=== PATIENT | female | born 1980 | race African-American/Black ===

== ENCOUNTER 2017-11-25 22:22 | Inpatient (IN) | payer OTHER ==
[~2017-11-25] VITALS: Ht 154.9 cm; Wt 62.8 kg
--- NOTE | ~2017-11-25 | 2DMMODE ---
[facility] [address] [place] [address] 2 D/M-MODE ECHOCARDIOGRAM Name: RENE DEGROOT Room #: 207-P [facility] IN ..#: [id number] Admission: 11/26/17 Attend Phys: Tj Larsen MD Discharge: Date of : 78 Date of Service: 11/27/17 1305 Report #: [id number] THIS REPORT FOR: //name// APPROVED REPORT Study performed: 11/27/2017 10:50:21 EXAM: Comprehensive 2D, Doppler, and color-flow Echocardiogram Patient Location: Bedside Room #: [facility] Status: routine BSA: 1.59 HR: 93 bpm BP: 148/101 mmHg Other Information Study Quality: Good Indications Diabetes Hypertension/HDD 2D Dimensions RVDd: 32.50 mm LVEF(%): 49.00 (>50%) IVSd: 13.39 (7-11mm) LVOT Diam: 19.75 (18-24mm) LVDd: 37.87 mm PWd: 12.53 (7-11mm) Ascending Ao: 25.69 (22-36mm) LVDs: 28.68 (25-40mm) Aortic Root: 26.27 mm IVC: 17.00 mm Mitchell's LVEF: 49.00 % Volumes Left Atrial Volume (Systole) Single Plane 4CH: 38.56 mL Single Plane 2CH: 34.94 mL LA ESV Index: 26.00 mL/m2 Aortic Valve AoV Peak Brett.: 1.26 m/s AO Peak Gr.: 6.31 mmHg LVOT Max P.80 mmHg LVOT Max V: 0.97 m/s KATHERIN Vmax: 2.38 cm2 Mitral Valve E/A Ratio: 1.3 MV Decel. Time: 157.54 ms [facility] [place] [address] 2 D/M-MODE ECHOCARDIOGRAM Name: RENE DEGROOT Room #: 207-P [facility] IN .R.#: [id number] Admission: 11/26/17 Attend Phys: Tj Larsen MD Discharge: Date of : 78 Date of Service: 11/27/17 1305 Report #: [id number] E Max Brett.: 0.99 m/s MV A Brett.: 0.79 m/s MV PHT: 45.69 ms IVRT: 92.27 ms Pulmonary Valve PV Peak Brett.: 0.87 m/s PV Peak Gr.: 3.03 mmHg PA End Vmax: 1.08 m/s Pulmonary Vein P Vein S: 0.52 m/s P Vein A: 0.17 m/s P Vein D: 0.37 m/s P Vein A Dur.: 78.4 msec P Vein S/D Ratio: 1.41 Tricuspid Valve TR Peak Brett.: 2.45 m/s TR Peak Gr.: 24.01 mmHg PA Pressure: 29.00 mmHg Left Ventricle The left ventricle is normal size. There is normal LV segmental wall motion. Mild concentric left ventricular hypertrophy. The left ventricular systolic function is normal. The left ventricular ejection fraction is within the normal range. LVEF is 50-55%. The left ventricular diastolic function is normal. Right Ventricle The right ventricle is normal size. The right ventricular systolic function is normal. Atria The left atrium size is normal. The right atrium size is normal. Aortic Valve The aortic valve is normal in structure. No aortic regurgitation is present. There is no aortic valvular stenosis. Mitral Valve The mitral valve is normal in structure. Mild mitral regurgitation. No evidence of mitral valve stenosis. Tricuspid Valve The tricuspid valve is normal in structure. There is trace to mild tricuspid regurgitation. Estimated PAP 30 mmHg. There [place] [address] 2 D/M-MODE ECHOCARDIOGRAM Name: RENE DEGROOT Room #: 207-P [facility] IN [facility]#: [id number] Admission: 11/26/17 Attend Phys: Tj Larsen MD Discharge: Date of : 78 Date of Service: 11/27/17 1305 Report #: [id number] Pulmonic Valve The pulmonary valve is normal in structure. There is no pulmonic valvular regurgitation. Great Vessels The aortic root is normal in size. IVC is normal in size and collapses >50% with inspiration. Pericardium There is no pericardial effusion. <Conclusion> The left ventricular systolic function is normal. There is normal LV segmental wall motion. LVEF is 50-55%. Mild LVH The left ventricular diastolic function is normal. The aortic valve is normal in structure. No aortic regurgitation or stenosis The mitral valve is normal in structure. Mild mitral regurgitation. There is trace to mild tricuspid regurgitation. Estimated pulmonary artery pressure 30 mmHg. There is no pericardial effusion. <ELECTRONICALLY SIGNED> By: Nathan Shea MD, FACC 11/27/17 1305 1305 1305 Nathan Shea MD, FACC /INF
--- NOTE | ~2017-11-25 | HC ---
[facility] [place] [address] CONSULTATION Name: DEGROOTRENE Room #: 207-P ADM IN M.R.#: [id number] Admission: 11/26/17 Attend Phys: Tj Larsen MD Discharge: Date of : 78 Report #: [id number] THIS REPORT FOR: //name// CC: Tj Larsen [facility] physician/PCP DATE OF SERVICE: 11/26/2017 LOCATION: [facility] room [address] Larsen. SUBJECTIVE: A 37-year-old black female with diabetes mellitus diagnosed at age 21. The patient was most recently on 7 units of lispro t.i.d. and 22 of glargine at bedtime; however, that insulin was changed apparently to a 70/30 type insulin, but the patient did not have either insulin since moving from [place] and has been without insulin for several days. The patient has not been on any specific diet or activity schedule. She monitors her sugars irregularly. She does not remember the type of meter used, but states that all values are in the 300s in the higher range. She is not aware of any hemoglobin A1c or other glucose determinations and does not have a primary care or other assisting physicians. Otherwise, she is unable to provide any useful prior medical information. Since admission, the patient was treated with limited fluids as well as IV insulin, which has now been discontinued. Other medications include hydrocodone, ceftriaxone, potassium chloride, potassium phosphate and dicyclomine and possibly other medication. OBJECTIVE: LABORATORY DATA: Hemoglobin A1c is not available. There is no arterial pH. Sodium 138, potassium 3.8, chloride 105, CO2 of 25, BUN 17, creatinine 0.7, most recent glucose was 81 this morning and then 370 recently. Other lab is as per chart. Fingerstick glucoses have decreased slowly from a high of 800 to a current level of 370 with limited hydration and tapering IV insulin. PHYSICAL EXAMINATION: GENERAL: Thin 37-year-old black female, in no acute distress. VITAL SIGNS: Height is reported to be 5 feet 1, weight 56 kilograms. The patient is afebrile, heart rate 84 and regular, blood pressure 140/80. SKIN: Warm and moist with decreased turgor. HEENT: PERRL. EOMs full. NECK: Supple, without masses, tenderness or thyromegaly. CHEST: Clear. HEART: Regular rhythm without murmurs, rubs or gallops. ABDOMEN: Benign. EXTREMITIES: Show no edema, cyanosis or clubbing. [facility] [address] [place] [address] CONSULTATION Name: RENE DEGROOT Room #: [address] [place] [address] [place] [facility].#: [id number] Admission: 11/26/17 Attend Phys: Tj Larsen MD Discharge: Date of : 78 Report #: [id number] NEUROLOGIC: Grossly intact. The patient is alert and oriented x 3, but unable to give much useful information. ASSESSMENT: Diabetes mellitus, out of control. The patient failing to take insulin for several days. The patient appears to have type 1 diabetes since age 21, but details are unknown. PLAN: 1. We will evaluate prior control with hemoglobin A1c. 2. We will establish appropriate dietary intake and educate in that diet. 3. The patient has been diagnosed with ketoacidosis, but there has been no determination of serum ketones or of acidosis. We will check arterial pH to make sure the patient is not in ketoacidosis and monitor electrolytes, phosphorus, etc. as needed. Meanwhile, we will hydrate vigorously with half normal saline and slowly decreasing rate. 4. We will institute lispro t.i.d. with meals and bedtime glargine in an effort to improve glucose control prior to dismissal. 5. We will also attempt to reeducate patient the importance of appropriate compliance to avoid necessity of emergency hospital admissions and risk to the patient's health. Thank you very much for this consultation. I will continue to follow the patient with you for management of diabetes mellitus. <ELECTRONICALLY SIGNED> By: Felipe Lorenzana MD 11/27/17 0148 1227 1825 Felipe Lorenzana MD /nt
[~2017-11-25 22:22] MED LIST: AMOXICILLIN 25250 M1 PO; DOXYCYCLINE 10100 MG PO; FLAGYL500 MG PO; HUMALOG100 UNIT/1 SQ; LANTUS SC; ULTRAM 50MG TAB50 MG PO; VICODIN 5-5001 EACH PO
[2017-11-25 22:23] VITALS: BP 146/126
[2017-11-25] MEDS ORDERED: LISINOPRIL10 MG PO (22:56)
[2017-11-25] MEDS ORDERED: GABAPENTIN 100100 MG PO (22:56)
[2017-11-25 23:24] LABS: URINE BILIRUBIN NEGATIVE (Negative); URINE BLOOD 2+ (Negative); URINE CLARITY SL CLOUDY; URINE COLOR OTHER; URINE GLUCOSE-RANDOM* 3+ (Negative); URINE KETONES TRACE (Negative); URINE LEUKOCYTES-REFLEX NEGATIVE (Negative); URINE PROTEIN (DIPSTICK) 2+ (Negative); URINE SPECIFIC GRAVITY <= 1.005 (1.005-1.035); URINE UROBILINOGEN 0.2 E.U./dl (0.2-1.0)
[2017-11-25 23:30] LABS: URINE NITRITE-REFLEX POSITIVE (Negative)
[2017-11-25 23:36] LABS: ABSOLUTE NEUTROPHILS 3.3 thou/uL (1.4-8.2); BASOPHILS 0.7 % (0.0-2.0); EOSINOPHILS 1.9 % (0.0-3.0); HEMATOCRIT 34.9 % (37.0-47.0); HEMOGLOBIN 11.6 gm/dL (12.0-15.0); LYMPHOCYTES 23.2 % (24.0-44.0); MCH 32.3 pg (26.0-34.0); MCHC 33.3 g/dL (28.0-37.0); MONOCYTES 5.4 % (1.0-8.0); PLATELET COUNT 315 thou/uL (150-400); POLYS 68.8 % (36.0-66.0); RBC 3.59 mil/uL (4.20-5.00); RDW 13.9 % (10.5-14.5); WBC 4.8 thou/uL (4.0-11.0)
[2017-11-25 23:47] LABS: CASTS None Seen /LPF (None Seen); CRYSTALS None Seen /LPF (None Seen); MUCUS None Seen strn/LPF (None Seen); SQUAMOUS 0-3 Few /LPF (0-3); URINE RBC 3-10 Few /HPF (0-2); URINE WBC-REFLEX 0-5 Rare /HPF (0-5)
[2017-11-25 23:49] LABS: ANION GAP 9 mmol/L (7-16); BUN 29 mg/dL (7-18); CALCIUM 8.5 mg/dL (8.5-10.1); CHLORIDE 92 mmol/L (98-107); CO2 25 mmol/L (21-32); CREATININE 1.1 mg/dL (0.6-1.0); POTASSIUM 4.6 mmol/L (3.5-5.1); SODIUM 126 mmol/L (136-145)
[2017-11-25 23:52] LABS: ALBUMIN 2.4 g/dL (3.4-5.0); DIRECT BILIRUBIN < 0.1 mg/dL (<0.1-0.3); LIPASE 404 U/L (73-393); SGOT 26 U/L (15-37); SGPT 83 U/L (30-65); TOTAL BILIRUBIN 0.2 mg/dL (<0.1-1.0); TOTAL PROTEIN 7.1 g/dL (6.4-8.2)
[2017-11-26] VITALS (9 sets, daily range): BP systolic 118–178; BP diastolic 73–126
[2017-11-26 00:04] LABS: GLUCOSE 922 mg/dL (74-106)
[2017-11-26 04:50] LABS: ALBUMIN 2.1 g/dL (3.4-5.0); CREATININE 0.8 mg/dL (0.6-1.0); MAGNESIUM 2.3 mg/dL (1.8-2.4); PHOSPHORUS 3.1 mg/dL (2.5-4.9)
[2017-11-26 08:26] LABS: ALBUMIN 2.1 g/dL (3.4-5.0); CALCIUM 8.2 mg/dL (8.5-10.1); CREATININE 0.7 mg/dL (0.6-1.0); MAGNESIUM 2.3 mg/dL (1.8-2.4); POTASSIUM 3.8 mmol/L (3.5-5.1)
[2017-11-26 14:14] LABS: BE(vivo) -4.8 mmol/L (-2 to +3); PCO2 41.5 mmHg (35.0-45.0); PO2 84.8 mmHg (80.0-100.0); sO2 95.7 % (92.0-98.0)
[2017-11-26 14:15] LABS: pH 7.321 (7.360-7.450)
[2017-11-26 17:15] LABS: ALBUMIN 2.1 g/dL (3.4-5.0); CALCIUM 7.8 mg/dL (8.5-10.1); CREATININE 0.8 mg/dL (0.6-1.0); MAGNESIUM 2.2 mg/dL (1.8-2.4); PHOSPHORUS 5.1 mg/dL (2.5-4.9); POTASSIUM 5.1 mmol/L (3.5-5.1)
[2017-11-26 21:28] LABS: CALCIUM 8.2 mg/dL (8.5-10.1); CREATININE 0.9 mg/dL (0.6-1.0); MAGNESIUM 2.2 mg/dL (1.8-2.4); PHOSPHORUS 4.8 mg/dL (2.5-4.9); POTASSIUM 4.9 mmol/L (3.5-5.1)
[2017-11-27 03:53] LABS: ALBUMIN 1.9 g/dL (3.4-5.0); CALCIUM 8.1 mg/dL (8.5-10.1); CREATININE 0.8 mg/dL (0.6-1.0); MAGNESIUM 2.2 mg/dL (1.8-2.4); PHOSPHORUS 3.7 mg/dL (2.5-4.9); POTASSIUM 4.2 mmol/L (3.5-5.1)
[2017-11-27 04:20] VITALS: BP 141/89
[2017-11-27 07:18] VITALS: BP 148/101
[2017-11-27 10:11] LABS: C-PEPTIDE 0.3 ng/mL (1.1-4.4); GLYCOHEMOGLOBIN (HGB A1C) 15.3 % (4.8-5.6)
[2017-11-27 11:25] VITALS: BP 140/100
[2017-11-27 15:17] VITALS: BP 154/97
[2017-11-27 20:10] VITALS: BP 158/94
[2017-11-28 04:30] VITALS: BP 150/50
[2017-11-28 04:51] LABS: ABSOLUTE NEUTROPHILS 2.6 thou/uL (1.4-8.2); BASOPHILS 0.7 % (0.0-2.0); EOSINOPHILS 4.3 % (0.0-3.0); HEMOGLOBIN 10.5 gm/dL (12.0-15.0); LYMPHOCYTES 44.8 % (24.0-44.0); MCH 31.9 pg (26.0-34.0); MCHC 33.8 g/dL (28.0-37.0); MCV 94.3 fL (80.0-100.0); MONOCYTES 5.2 % (1.0-8.0); PLATELET COUNT 335 thou/uL (150-400); RBC 3.29 mil/uL (4.20-5.00); RDW 13.8 % (10.5-14.5); WBC 5.7 thou/uL (4.0-11.0)
[2017-11-28 05:01] LABS: CALCIUM 8.6 mg/dL (8.5-10.1); CREATININE 0.8 mg/dL (0.6-1.0); POTASSIUM 4.2 mmol/L (3.5-5.1)
[2017-11-28] MEDS ORDERED: HUMALOG100 UNIT/1 SQ (07:37)
[2017-11-28] MEDS ORDERED: LANTUS SC (07:37)
[2017-11-28] MEDS ORDERED: KEFLEX500 M1 PO (07:41)
[2017-11-28 08:20] VITALS: BP 153/89
[2017-11-28 10:51] VITALS: BP 153/89
== END 2017-11-28 13:54 | disposition home or self-care (01) | DRG 638 ==
LOC: ER 22:22 → EROBS 11-26 00:52 → 2N 11-26 00:52
PROVIDERS: Emergency Medicine; Family Medicine; Internal Medicine Endocrinology, Diabetes & Metabolism; Nurse Practitioner Family
DX: E10.10 Type 1 diabetes mellitus with ketoacidosis without coma (principal); N17.9 Acute kidney failure, unspecified; N39.0 Urinary tract infection, site not specified; E10.65 Type 1 diabetes mellitus with hyperglycemia; R19.7 Diarrhea, unspecified; I10 Essential (primary) hypertension; E10.40 Type 1 diabetes mellitus with diabetic neuropathy, unspecified; Z77.22 Contact with and (suspected) exposure to environmental tobacco smoke (acute) (chronic); E10.69 Type 1 diabetes mellitus with other specified complication; Z88.6 Allergy status to analgesic agent; Z88.8 Allergy status to other drugs, medicaments and biological substances; Z79.899 Other long term (current) drug therapy
CPT/HCPCS: 10081